=== PATIENT | female | born 1950 | race Hispanic/Latino ===

== ENCOUNTER 2018-04-23 09:18 | Day surgery (SDC) | payer OTHER, MEDICARE ==
[~2018-04-23] VITALS: Ht 154.9 cm; Wt 84.2 kg
[~2018-04-23 09:18] MED LIST: SODIUM CHLORIDE 0.9% 1000ML 1,000 ML IV ONE
[2018-04-23 10:21] VITALS: BP 171/75
[2018-04-23] MEDS ORDERED: AMLO5TAB2 PO (11:03)
[2018-04-23] MEDS ORDERED: EZET10 PO (11:03)
[2018-04-23] MEDS ORDERED: SITA100T12 PO (11:03)
[2018-04-23] MEDS ORDERED: ESOM40CA54 PO (11:03)
[2018-04-23] MEDS ORDERED: LOSA50TA37 PO (11:03)
[2018-04-23] MEDS ORDERED: [UNRECOGNIZED DRUG - OTHER] (11:03)
[2018-04-23] MEDS ORDERED: NEBI5TAB8 PO (11:03)
[2018-04-23] MEDS ORDERED: GLYCOPYRROLATE 0.2 MG/ML 5 ML VIAL ONE (11:10)
[2018-04-23] MEDS ORDERED: PROPOFOL 10 MG/ML 20ML VIAL IV ONE (11:10)
[2018-04-23] MEDS ORDERED: LIDOCAINE HCL 2% 20ML ONE (11:11)
== END 2018-04-23 12:20 | disposition home or self-care (01) ==
LOC: DAH 09:18
PROVIDERS: ATTEND Internal Medicine Gastroenterology
DX: K29.50 Unspecified chronic gastritis without bleeding (principal); K86.2 Cyst of pancreas; K31.7 Polyp of stomach and duodenum; E11.9 Type 2 diabetes mellitus without complications; M19.90 Unspecified osteoarthritis, unspecified site; I10 Essential (primary) hypertension; E78.5 Hyperlipidemia, unspecified; K57.30 Diverticulosis of large intestine without perforation or abscess without bleeding; K21.9 Gastro-esophageal reflux disease without esophagitis; D64.9 Anemia, unspecified; B19.20 Unspecified viral hepatitis C without hepatic coma; D69.6 Thrombocytopenia, unspecified; Z90.710 Acquired absence of both cervix and uterus; Z90.49 Acquired absence of other specified parts of digestive tract; Z68.32 Body mass index [BMI] 32.0-32.9, adult; Z79.899 Other long term (current) drug therapy; Z79.84 Long term (current) use of oral hypoglycemic drugs; K31.9 Disease of stomach and duodenum, unspecified
CPT/HCPCS: 43237; 43239; 82948 ×2; 88305; 88312; A4606; J2704; J3490 ×2; J7030; 43231

== ENCOUNTER 2019-05-12 07:00 | Day surgery (SDC) | payer MEDICARE ==
[~2019-05-12] VITALS: Ht 157.5 cm; Wt 74.8 kg
[~2019-05-12 07:00] MED LIST changes: +AMLO5TAB9 PO; +ESOM40CA54 PO; +EZET10 PO; +LOSA50TA64 PO; +NEBI5TAB8 PO; +SITA100T12 PO; +[UNRECOGNIZED DRUG - OTHER]
[2019-05-12 07:07] VITALS: BP 125/51
[2019-05-12] MEDS ORDERED: VITAMIN D2 PO (07:43)
[2019-05-12] MEDS ORDERED: OMEP40CA37 PO (07:43)
[2019-05-12] MEDS ORDERED: AMLO10TA7 PO (07:43)
[2019-05-12] MEDS ORDERED: PROPOFOL 10 MG/ML 20ML VIAL IV ONE ×2 (07:49)
[2019-05-12] MEDS ORDERED: LIDOCAINE HCL 1% 20 ML VIAL ONE (07:49)
[2019-05-12] MEDS ORDERED: URSO500T9 PO (08:02)
[2019-05-12] MEDS ORDERED: TRESIBA SQ (08:02)
[2019-05-12] MEDS ORDERED: OZEMPIC SQ (08:02)
[2019-05-12 08:10] VITALS: BP 91/42
[2019-05-12 08:15] VITALS: BP 94/45
[2019-05-12 08:20] VITALS: BP 102/51
[2019-05-12 08:25] VITALS: BP 87/44
[2019-05-12 08:30] VITALS: BP 115/57
== END 2019-05-12 08:47 | disposition home or self-care (01) ==
LOC: DAH 07:00 → ENDO 07:00
PROVIDERS: ATTEND Internal Medicine
DX: K22.8 Other specified diseases of esophagus (principal); K31.89 Other diseases of stomach and duodenum; E11.9 Type 2 diabetes mellitus without complications; M19.90 Unspecified osteoarthritis, unspecified site; I10 Essential (primary) hypertension; E78.5 Hyperlipidemia, unspecified; K21.9 Gastro-esophageal reflux disease without esophagitis; D64.9 Anemia, unspecified; Z79.899 Other long term (current) drug therapy; D69.6 Thrombocytopenia, unspecified; Z90.710 Acquired absence of both cervix and uterus; Z98.890 Other specified postprocedural states
CPT/HCPCS: 43237; 82948 ×2; A4606; J2704 ×2; J7030; 43231